=== PATIENT | male | born 1955 | race Caucasian/White ===

== ENCOUNTER 2023-12-07 09:04 | Outpatient (CLI) | payer BC, SELFPAY | END 2023-12-07 09:05 | disposition home or self-care (01) | LOC: LAB 09:05 | PROVIDERS: Visit Provider Family Medicine | DX: Z01.83 Encounter for blood typing (principal) | CPT/HCPCS: 36415; 86850; 86900; 86901 ==

== ENCOUNTER 2023-12-09 06:03 | Day surgery (SDC) | payer BC, SELFPAY ==
[2023-12-09] VITALS (32 sets, daily range): BP systolic 83–138; BP diastolic 49–104; PULSE 60–90; RESP 12–20; TEMP 35.9–37.4; O2SAT 91–100; BMI 37.8
[2023-12-09] MEDS: OXYCODONE (CR) 10 MG TAB.ER.12H PO (06:07)
[2023-12-09] MEDS: ACETAMINOPHEN 500 MG TABLET 1000 MG PO (06:07)
--- OUTSIDE RECORDS SUMMARY | 2023-12-09 06:07 | XMS_ITS | Clinical Summary ---
Author Name Unknown Organization [employer] [facility] Address [place], [place] [address] Care Team Providers Care Machine Veneer Repairer Name Role Phone None Primary Care Provider Unavailabl e Medications Medication Sig Dispensed Refills Start Date End Date Status brimonidine (ALPHAGAN) 0.2 % ophthalmic solution 0 04/15/2023 Activ e losartan (COZAAR) 100 mg tablet 0 02/05/2023 Active hydroCHLOROthiazide (HCTZ) 25 mg tablet 0 10/28/2022 Active Social History Tobacco Use Types Packs/Day Years Used Date Smoking Tobacco: Never Assessed Social Connections Answer Date Recorded Frequency of Communication with Friends and Fami ly Not on file 04/17/2023 Sex and Gender Information Value Date Recorded Sex Assigned at Not on file Gender Identity Not on file Sexual Orientation Not on file Last Filed Vital Signs Vital Sign Reading Time Taken Comments Blood Pressure 157/73 11/20/2021 10:08 AM ROUND CORNER CUTTER OPERATOR Pulse 76 11/20/2021 10:08 AM ROUND CORNER CUTTER OPERATOR Temperature 37 ??C (98.6 ??F) 11/20/2021 10:08 AM ROUND CORNER CUTTER OPERATOR Respiratory Rate 18 11/20/2021 10:08 AM ROUND CORNER CUTTER OPERATOR Oxygen Saturation 98% 11/20/2021 10:08 AM ROUND CORNER CUTTER OPERATOR Inhaled Oxygen Concentration - - Weight 121.6 kg (268 lb) 04/17/2023 2:56 PM CDT Height 185.4 cm (6' 1) 04/17/2023 2:56 PM CDT Body Mass Index 35.36 04/17/2023 2:56 PM CDT Plan of Treatment Health Maintenance Due Date Last Done Comments Tdap 02/02/1967 Depression screening for age 12+ 1968 Hepatitis C screening for age 18-79 02/02/1974 Tetanus booster 1976 Colonoscopy through age 75 02/02/2001 Lipids for age 45-75 02/02/2001 Zoster (shingles) series for age 50+ (1 of 2) 02/03/20 06 Pneumococcal series for age 65+ (1 of 1 - PCV) 021 COVID-19 vaccine series (2 - 2022- season) 3 08/13/2022 Influenza for age 65+ 07/26/2023 BMI (ht and wt on same day) for age 18+ 04/17/2024 0 04/17/2023 Care Teams Machine Veneer Repairer Relationship Specialty Start Date End Date None . PCP - General 11/20/21
[2023-12-09] MEDS: LACTATED RINGERS 1000 ML 1,000 ML 100 ML IV ×3 (06:45→10:08)
[2023-12-09] MEDS: SODIUM CHLORIDE 0.9 % (FLUSH) 10 ML SYRINGE IVF (06:45)
--- NOTE | 2023-12-09 07:05 | SUR.PREOP ---
TIME?OUT:?05 PT/RN/MDA?VERIFICATION?OF?SURGICAL?SITE,?PROCEDURE,?AND?CONSENT OBTAINED?PRIOR?TO?INVASIVE?PROCEDURE.
[2023-12-09] MEDS: fentaNYL 100 MCG/2 ML inj IVP (07:08)
[2023-12-09] MEDS: MIDAZOLAM HCL 1 MG/ML inj IVP (07:08)
[2023-12-09] MEDS: CEFAZOLIN 2 GM in 0.9 % SODIUM CHLORIDE Mini-bag 100 ML IVPB (07:36)
--- NOTE | 2023-12-09 07:39 | W.PM.H&PU ---
History & Physical Update History & Physical Update H&P Reviewed and patient assessed: No changes noted
[2023-12-09] MEDS: TRANEXAMIC ACID 100 MG/ML INJ 1000 MG IV (07:40)
--- NOTE | 2023-12-09 09:52 | P.ORPRC_ITS ---
Procedure Note Date of procedure: 12/09/23 Procedure: PREOPERATIVE DIAGNOSIS: 1. Right hip osteoarthritis, severe, primary POSTOPERATIVE DIAGNOSIS: 1. Right hip osteoarthritis, severe, primary PROCEDURE: 1. Right total hip arthroplasty-anterior approach 2. 32598 - intraoperative fluoroscopy up to 1 hour. SURGEON: Kendall Evans MD. TRANSIT AUTHORITY POLICE OFFICER: Dickson Causey PA-C; Juwan FLOYD - Of note, a skilled anesthesiologists' assistant was critical for this case to aid in patient positioning, tissue retraction, limb manipulation/positioning, and closure. ANESTHESIA: General endotracheal anesthetic EBL: 600 mL IMPLANTS: DePuy J&J uncemented total hip [place] cup size 54, hole eliminator, +4 neutral liner Actis stem, high offset, size 9 +1.5 mm ceramic 36 mm head COMPLICATIONS: None evident INDICATIONS: The patient is a pleasant 68-year-old male who has experienced severe right hip pain and difficulty bearing weight. Workup included x-rays which revealed severe osteoarthrosis in the hip. Given the deformity, the dysfunction, and the pain, as well as the failure of nonoperative management, recommendation was made for surgery. FINDINGS: Full-thickness chondral loss diffusely throughout the femoral head. Also acetabulum. Osteophytes around the perimeter of the acetabulum and femoral head/neck junction. Small effusion upon entering the joint. DESCRIPTION OF PROCEDURE: Following a thorough discussion of risks, benefits, and alternatives consent was obtained and the right hip was marked. The patient was brought to the operating room and placed supine on the operating table. Induction of anesthesia was undertaken. 3 g IV Ancef and 1 g tranexamic acid was administered within 1 hr of incision preoperatively. Proper time-out was performed identifying proper patient, site, procedure. The operative extremity was prepped and draped in the appropriate sterile fashion using ChloraPrep after the patient was positioned on the [place] table with head in neutral alignment and all bony prominences well padded. C-arm fluoroscopic imaging was utilized to confirm proper pelvis rotation and position, and to get true AP films of both the contralateral left, and the affected right hip. This is for comparison. A longitudinal incision was made starting approximately 1 cm distal to the ASIS, and 3-4 cm lateral. The incision was extended distally aiming toward the lateral border the patella. Sharp incision through skin and bovie cautery through the subcutaneous tissue allowed identification of the TFL fascia. This was sharply divided, and the fascia bluntly released from the muscle fibers as we dissected medial. Upon coming to the medial border, we were able to retract the TFL laterally, and penetrated the deeper fascia and identify the crossing circumflex vessels. These were ligated/cauterized. The rectus was elevated from the capsule, and retractors placed laterally and medially along the femoral neck to help with visualization of the capsule. We then performed an inverted T capsulotomy. The capsule was tagged for later repair. Retractors were placed inside the capsule. The femoral neck was visualized after releasing medially down to the lesser trochanter, along the saddle laterally, and up onto the acetabulum. The femoral neck cut was made in line with our preoperative templating. The head was removed in a single piece, and sized. We turned our attention to acetabular preparation. Initially, the labrum was resected from around the perimeter, the pulvinar was excised, allowing us to visualize the false wall. We started the reaming with a 43 mm reamer. This was medialized down to the true wall. We then enlarged our reamers sequentially up to one size less than the selected cup size. We trialed at the same size and found it to have an excellent fit. The selected cup was then opened, inserted, and impacted in line with the goal of 40? of abduction, and 20-25? of anteversion. This was confirmed on C-arm fluoroscopic imaging to be in the appropriate/goal position. Once the cup was placed we placed a hole eliminator a nd a liner consistent with preop planning. Attention was turned to the femoral preparation. The limb was extended, externally rotated, and adducted. The posteromedial capsule was released, as retractors were placed allowing excellent access to the proximal femur. Initially a farebox repairer was followed by canal finder followed by various broaches. We broached sequentially up to the size noted above, found it to have excellent rotational control, and trialing various heads and necks, revealed that appropriate neck offset, and the above noted head size provided the greatest stability, and pentecostal of length, and offset. C-arm fluoroscopic imaging confirmed position of the stem, as well as leg lengths, which were compared with the pre procedure all fluoroscopic images. Trial implants were removed, the real femoral stem inserted, as was the appropriate head. After reducing, the leg was placed through range of motion and stability was confirmed anterior, posterior, and lateral. A 3 min Betadine soak was then performed, and thorough irrigation with normal saline followed. Closure of the capsule was performed with #1 PDS. Bleeding was confirmed to be controlled at this stage, and the TFL fascia was closed with #0 strata fix. Subcutaneous, and subcuticular closure was performed with 2-0 Vicryl and 4-0 Monocryl, respectively. Dressings were applied, and the patient was awoken from anesthesia and transferred the PACU in stable condition. A skilled anesthesiologists' assistant was critical for this case to aid in patient positioning, tissue retraction, acetabular and proximal femoral exposure, limb manipulation/positioning, dislocation/relocation, patient safety, and closure. PLAN: 1. Weight bear as tolerated operative extremity. 2. 23 hr perioperative antibiotics. 3. Ice. 4. PT/OT consults for ambulation assistance/mobility education. 5. Social work consult for discharge planning. 6. DVT prophylaxis with at SCDs, Sharad Thelmae, and Xarelto x5 days followed by aspirin for a total of 1 month..
--- NOTE | 2023-12-09 10:05 | P.NB_ITS ---
Nerve Block Nerve Block Time Seen by Provider: 07:18 Date Seen: 12/09/23 Type of block requested by surgeon for post-operative analgesia: TIFFANY/LFCN Side: right Time out performed: Yes Verification of patient name: Yes Verification of date of : Yes Site marking: site marked Name of person performing procedure: Yuriy Continuous monitoring Was continuous monitoring of O2 sat, B/P, playground monitor, recorded every 15 minutes?: Yes Procedure Checklist: sterile prep, needles and gloves Ultrasound guided. Images saved: Yes Medications given in 5ml increments after negative aspiration: Ropivicaine %: 0.5 mL: 30 Needle gauge: 20 Decadron (mg): 10 Precedex (mcg): 25 Patient tolerated procedure well: Yes Additional comments: Needle noted below psoas tendon needle noted adjacent to LFCN Block Charges Block Charge (with Pro Fee): Other Periph Nerve Block Use of Ultrasound Machine for Block: Yes- US Guidance/pain block
--- NOTE | 2023-12-09 10:06 | W.ANESCHARGE ---
Anesthesia Charges Start Date/Time Anesthesia Start Date: 12/09/23 Anesthesia Start Time: 07:26 Stop Date/Time Anesthesia Stop Date: 12/09/23 Anesthesia Stop Time: 10:35
--- NOTE | 2023-12-09 10:15 | CRLHL7_ITS ---
For Patients: As a result of the Cures Act, medical imaging exams and procedure reports are released immediately into your electronic medical record. You may view this report before your referring provider. If you have questions, please contact your health care provider. INDICATION: Post right hip arthroplasty. TECHNIQUE: AP view of the pelvis as well as AP and lateral projections of right hip. COMPARISON: : None FINDINGS: Immediate postop change of right total hip arthroplasty. Prosthetic components well-seated and aligned. Moderate to advanced left hip osteoarthritis. IMPRESSION: : Immediate postop right total hip arthroplasty without evidence of complication. Dictated by Michael Frazier MD @ 12/10/2023 1:20:04 PM (Electronically Signed)
[2023-12-09] MEDS: fentaNYL 100 MCG/2 ML inj 50 MCG IVP ×2 (10:34→10:40)
--- NOTE | 2023-12-09 10:35 | W.ANESCHARGE ---
Anesthesia Charges Start Date/Time Anesthesia Start Date: 12/09/23 Anesthesia Start Time: 07:26 Stop Date/Time Anesthesia Stop Date: 12/09/23 Anesthesia Stop Time: 10:35
[2023-12-09] MEDS: HYDROmorphone 0.5 mg/0.5 ml inj IVP (10:58)
[2023-12-09] MEDS: METOCLOPRAMIDE HCL 5 MG/ML INJ 10 MG IVP (11:59)
--- NOTE | 2023-12-09 12:11 | CRLHL7_ITS ---
For Patients: As a result of the Cures Act, medical imaging exams and procedure reports are released immediately into your electronic medical record. You may view this report before your referring provider. If you have questions, please contact your health care provider. INDICATION: Right ANTONIA. TECHNIQUE: Two spot images of the right hip submitted. 57.9 seconds fluoro time provided. FINDINGS: Images taken during placement of right ANTONIA. Dictated by Fabio Francis MD @ 12/10/2023 9:04:26 AM (Electronically Signed)
--- NOTE | 2023-12-09 13:31 | SUR.PHASEII ---
PATIENTS RIGHT UPPER LIP SWOLLEN, ANESTHESIA AWARE, INSTRUCTED PATIENT TO ICE NEEDED FOR SWELLING.
--- NOTE | 2023-12-09 14:29 | SUR.PHASEII ---
Pt sitting up in chair in room getting ready for PT/OT. Pt had drop in blood presssure to 83/68. Pt states symptoms of feeling weak and tired. Pt appears pale. Repositioned patient chair to semi-fowlers position. BP continued to be lower, pt states he is still feeling tired and dizzy. Pt in chair in semi fowlers for 10 minutes. Pt BP returned to normal level and pt color improved.
--- NOTE | 2023-12-09 14:43 | REH.OT ---
D/T decreased blood pressures, pt. was transferred to / for recovery. He will be evaluated tomorrow prior to discharge.
[2023-12-09 15:14] LABS: Basophils Percent Auto 0.1 % (0.0-3.0); Hematocrit 43.8 % (37.0-53.0); Hemoglobin* 14.5 gm/dL (13.5-17.5); Immature Granulocytes Pct Auto 0.3 %; Mean Corpuscular HGB Conc 33 gm/dL (32-36); Mean Corpuscular Hemoglobin 31 pg (26-34); Mean Corpuscular Volume 94 fL (80-100); Monocytes Percent Auto 2.9 % (0.0-11.0); Neutrophils Percent Auto 90.7 % (42.0-72.0); Platelet Count* 251 K/uL (140-440); RDW Coefficient of Variation % 11.7 % (11.5-15.5); Red Blood Count 4.65 m/uL (4.30-5.90); White Blood Count* 12.75 K/uL (4.50-11.00)
[2023-12-09 15:20] LABS: Slide Review Reflex No
[2023-12-09 15:30] LABS: Chloride* 102 mmol/L (96-114); Potassium* 3.8 mmol/L (3.6-5.1); Sodium* 137 mmol/L (135-149)
[2023-12-09 15:33] LABS: Anion Gap 13 mEq/L (7-15); Blood Urea Nitrogen* 22 mg/dL (7-30); Carbon Dioxide* 22 mmol/L (20-32); Creatinine* 1.1 mg/dL (0.5-1.5); Est. Creatinine Clearance* 73.65; Estimated Glomerular Filt Rate 74 ml/min
[2023-12-09 15:34] LABS: Calcium* 8.9 mg/dL (8.4-10.6); Glucose* 214 mg/dL (60-115)
[2023-12-09] MEDS: CEFAZOLIN 3 GM in 0.9 % SODIUM CHLORIDE Mini-bag 100 ML IVPB (17:44)
[2023-12-09] MEDS: 0.9 % SODIUM CHLORIDE 250 ml IV (17:45)
[2023-12-09] MEDS: hydrOXYzine pamoate 25 MG CAPSULE PO ×2 (18:27→22:30)
--- NOTE | 2023-12-09 19:05 | P.IMCN_ITS ---
Date of Consult Patient: [facility] Patient Consult date: 12/09/23 Requesting Physician: Orthopedics Primary Care Provider: Kermit Combs MD, [facility] Consult Narrative Reason for consult: Medical management Narrative: Pablo Sequeira is a 68 year old male past medical history significant for hypertension, migraines, BPPV, primary open-angle glaucoma, right rotator cuff repair is POD#0 s/p right ANTONIA. Postoperatively, patient reports he is a little anxious as the block wears off and pain is slowly increasing. He is open to using hydroxyzine as needed. Was supposed to discharge to home today following surgery however was hypotensive so decision was made to admit for observation. He admits this also makes him a little anxious. Denies nausea, tolerating orals without vomiting. There have been no post operative nursing concerns reported. Blood pressure stabilized. Estimated total blood loss documented as 600 ml. Updated and reviewed the active medical problems, past medical history, past surgical history, social history, allergies and medications in our electronic EMR. Review of Systems Narrative: REVIEW OF SYSTEMS: Complete review of systems performed and negative unless otherwise stated in HPI or below. PFSH [facility] Medical History Diverticulosis ?K57.90 - Diverticulosis of intestine, part unspecified, without perforation or abscess without bleeding (ICD-10) BPPV (benign paroxysmal positional vertigo) ?H81.10 - Benign paroxysmal vertigo, unspecified ear (ICD-10) Pre-diabetes ?R73.03 - Prediabetes (ICD-10) Sleep apnea ?G47.30 - Sleep apnea, unspecified (ICD-10) Hypertension ?I10 - Essential (primary) hypertension (ICD-10) Surgical History Hx of arthroscopic knee surgery ?Z98.890 - Other specified postprocedural states (ICD-10) S/P right rotator cuff repair (~2020) ?Z98.890 - Other specified postprocedural states (ICD-10) History of open reduction and internal fixation (ORIF) procedure ?Z98.890 - Other specified postprocedural states (ICD-10) H/O arthroscopy of left knee ?Z98.890 - Other specified postprocedural states (ICD-10) Social History Narrative: former chewing tobacco user-quit in -[place] Smoking Status: Former smoker What tobacco products do you use: cigarettes Smoking quit date/years: >15 years ago Do you use any of these nicotine containing products: None Second hand tobacco smoke exposure: No How often do you have a drink containing alcohol: never How often do you have six or more drinks on one occasion: Never AUDIT-C Alcohol total score: 0 Non-prescribed substance use: denies use Caffeine: Yes Meds Home Medications and Allergies Home Medications Medication Instructions Recorded Confirmed Type dorzolamide 22.3 mg-timolol 6.8 1 drp ophthalmic (eye) BID 10/01/23 12/09/23 History mg/mL eye drops hydrochlorothiazide 25 mg tablet 25 mg PO DAILY 10/01/23 12/09/23 History latanoprost 0.005 % eye drops 1 drp ophthalmic (eye) HS 10/01/23 12/09/23 History losartan 100 mg tablet 100 mg PO DAILY 10/01/23 12/09/23 History multivitamin (Multiple Vitamins 1 tab PO DAILY 10/01/23 12/09/23 History tablet) meloxicam 15 mg tablet 7.5 mg PO BID PRN 12/05/23 12/09/23 History Allergies Allergy/AdvReac Type Severity Reaction Status Date / Time No Known Drug Allergies Allergy Verified 12/09/23 06:17 Exam Narrative: Exam Narrative: PHYSICAL EXAM General: Pleasant, conversant, NAD HEENT: Normocephalic, atraumatic, sclera white, EOMI, oral mucosa moist Cardiovascular: RRR, S1S2. No pitting edema Pulmonary: CTA bilaterally without rhonchi, rales, expiratory wheezes. No dys pnea Abdominal: Soft, nondistended, NTTP Neurological: Alert, answering questions appropriately, cranial nerves intact, no focal findings Extremities: No gross joint deformity or swelling. Postoperative dressing in place, dry. Neurovascularly intact Skin: Warm, dry. Const: Vital Signs, click to edit/add: Vital Signs - 24 hr 12/09/23 06:56 12/09/23 07:09 12/09/23 07:15 Temperature 98.2 F 98.2 F Pulse Rate 68 66 60 Pulse Rate [Right Pulse Oximeter] Respiratory Rate 16 16 14 Blood Pressure 132/62 132/62 124/104 H Blood Pressure [Le ft Arm] Pulse Oximetry 98 98 96 Oxygen Delivery Me thod Room Air Nasal Cannula Nasal Cannula Oxygen Flow Rate 2 2 12/09/23 07:20 12/09/23 10:30 12/09/23 10:35 Temperature 97.4 F L Pulse Rate 67 70 72 Pulse Rate [Right Pulse Oximeter] Respiratory Rate 14 18 18 Blood Pressure 119/70 119/73 112/70 Blood Pressure [Le ft Arm] Pulse Oximetry 96 95 94 Oxygen Delivery Me thod Nasal Cannula Room Air Oxygen Flow Rate 2 12/09/23 10:40 12/09/23 10:45 12/09/23 10:50 Temperature Pulse Rate 67 67 65 Pulse Rate [Right Pulse Oximeter] Respiratory Rate 14 14 16 Blood Pressure 133/67 107/55 L 105/49 L Blood Pressure [Le ft Arm] Pulse Oximetry 96 93 91 Oxygen Delivery Me thod Nasal Cannula Oxygen Flow Rate 2 12/09/23 10:55 12/09/23 11:00 12/09/23 11:05 Temperature 97.1 F L Pulse Rate 65 64 63 Pulse Rate [Right Pulse Oximeter] Respiratory Rate 15 12 16 Blood Pressure 127/76 138/69 135/70 Blood Pressure [Le ft Arm] Pulse Oximetry 99 100 100 Oxygen Delivery Me thod Oxygen Flow Rate 12/09/23 11:10 12/09/23 11:16 12/09/23 11:20 Temperature 96.6 F L Pulse Rate 60 64 64 Pulse Rate [Right Pulse Oximeter] Respiratory Rate 14 14 14 Blood Pressure 138/79 106/61 106/76 Blood Pressure [Le ft Arm] Pulse Oximetry 100 100 100 Oxygen Delivery Me thod Nasal Cannula Nasal Cannula Nasal Cannula Oxygen Flow Rate 2 2 2 12/09/23 11:30 12/09/23 11:45 12/09/23 12:00 Temperature Pulse Rate 62 63 66 Pulse Rate [Right Pulse Oximeter] Respiratory Rate 14 14 14 Blood Pressure 117/64 120/67 135/75 Blood Pressure [Le ft Arm] Pulse Oximetry 99 99 100 Oxygen Delivery Me thod Nasal Cannula Nasal Cannula Room Air Oxygen Flow Rate 2 2 12/09/23 12:15 12/09/23 12:30 12/09/23 13:00 Temperature Pulse Rate 69 63 79 Pulse Rate [Right Pulse Oximeter] Respiratory Rate 14 14 14 Blood Pressure 136/80 121/70 102/62 Blood Pressure [Le ft Arm] Pulse Oximetry 93 98 99 Oxygen Delivery Me thod Room Air Room Air Room Air Oxygen Flow Rate 12/09/23 13:30 12/09/23 13:35 12/09/23 13:40 Temperature Pulse Rate 79 75 79 Pulse Rate [Right Pulse Oximeter] Respiratory Rate 16 16 16 Blood Pressure 83/68 L 92/49 L 97/62 Blood Pressure [Le ft Arm] Pulse Oximetry 94 94 94 Oxygen Delivery Ri thod Room Air Room Air Room Air Oxygen Flow Rate 12/09/23 13:45 12/09/23 14:00 12/09/23 14:30 Temperature Pulse Rate 79 75 75 Pulse Rate [Right Pulse Oximeter] Respiratory Rate 16 16 16 Blood Pressure 111/59 L 113/57 L 117/74 Blood Pressure [Le ft Arm] Pulse Oximetry 92 94 94 [facility] Room Air Room Air Oxygen Flow Rate 12/09/23 15:02 12/09/23 15:02 12/09/23 16:00 Temperature 98.2 F Pulse Rate Pulse Rate [Right Pulse Oximeter] 82 78 Respiratory Rate 20 18 Blood Pressure Blood Pressure [Le ft Arm] 117/60 106/68 Pulse Oximetry 92 92 94 [facility] Room Air Room Air Oxygen Flow Rate 12/09/23 17:00 Temperature 98.0 F Pulse Rate Pulse Rate [Right Pulse Oximeter] 87 Respiratory Rate 18 Blood Pressure Blood Pressure [Le ft Arm] 125/65 Pulse Oximetry 95 Oxygen Delivery Ri thod Room Air Oxygen Flow Rate Labs Labs: Short CBC 12/09/23 Range/Units 15:08 WBC 12.75 H (4.50-11.00) K/uL Hgb 14.5 (13.5-17.5) gm/dL Hct 43.8 (37.0-53.0) % Plt Count 251 (140-440) K/uL BMP 12/09/23 15:08 Sodium 137 Potassium 3.8 Chloride 102 Carbon Dioxide 22 BUN 22 Creatinine 1.1 Glucose 214 H Calcium 8.9 Assessment and Plan Assessment and plan (1) Osteoarthritis of right hip: Problem comment: -POD#0 s/p right total hip arthroplasty -perioperative management including pain management and anticoagulation per Orthopedic surgery. Added p.r.n. hydroxyzine for postoperative anxiety -encourage postoperative pulmonary hygiene -PT OT consults -plan to discharge home with tomorrow Status: Acute (2) Hypertension: Problem comment: -hypotensive perioperatively, improved with IVF, has remained stable -hold home losartan and hydrochlorothiazide tonight, resuming upon discharge Status: Chronic Plan May resume home medications upon discharge. Hospital medicine team will sign off. Please contact our service with any questions or concerns.
[2023-12-09] MEDS: OXYCODONE 5 MG TABLET PO (19:57)
[2023-12-09] MEDS: SENNOSIDES 1 TAB TABLET 2 TAB PO (20:43)
[2023-12-10] MEDS: OXYCODONE 5 MG TABLET PO ×4 (01:34→11:10)
[2023-12-10] MEDS: CEFAZOLIN 3 GM in 0.9 % SODIUM CHLORIDE Mini-bag 100 ML IVPB (01:34)
[2023-12-10 01:43] VITALS: TEMP 37.1
[2023-12-10 02:25] VITALS: BP 118/63; PULSE 84; RESP 17; TEMP 37.2; O2SAT 92
--- NOTE | 2023-12-10 06:52 | PC.NURSE ---
Patient pleasant, alert and oriented. Transfers and ambulates with walker and stand by assist. Needed help supporting right leg when sitting up and lying down in bed. Denies lightheadedness/diziness with ambulation. Reports pain with position change, standing and ambulation. Given PRN Oxycodone for pain in right hip rated 6-7/10. PRN anxiety medication given per patient request at HS.?
[2023-12-10 08:06] VITALS: BP 126/68; PULSE 88; RESP 18; TEMP 36.9; O2SAT 93
[2023-12-10] MEDS: SENNOSIDES 1 TAB TABLET 2 TAB PO (08:23)
[2023-12-10] MEDS: RIVAROXABAN 10 MG TABLET PO (08:23)
--- NOTE | 2023-12-10 10:17 | PM.ORPN ---
Subjective Subjective Date Seen: 12/10/23 Principal diagnosis: Status postop day 1, right total hip arthroplasty - anterior approach Interval history: Same-day joint trial. Due to pain control issues, patient was transferred to the floor as med surg recovery. He reports doing okay, pain noted over the anterior right thigh; 5/10 with rest, 7/10 with activity. The worst is trying to get out of bed. No acute events over night. Mild, short lasting lightheadedness when getting out of bed this morning - no residual lightheadedness. Pain managed with scheduled and PRN medications, ice. DVT prophylaxis: Rivaroxaban, bilateral knee high Sharad stockings, SCDs, walking. Denies fevers, chills, aches, N/V, CP, SOB/VAUGHAN. Ortho Exam Narrative Exam Narrative: -Patient appears comfortable in recliner; no apparent acute distress -Alert and oriented times 3 -Operative hip swollen; soft tissues supple; no obvious erythema. Ecchymosis minimal. Warmth appropriate -Surgical dressing clean, dry, intact; no obvious drainage, no erythematous streaking peripheral to the bandage -Bilateral calves soft and supple; no significant swelling, edema, tenderness, erythema, discoloration, warmth, or palpable cords -2+ DP/PT pulses, intact dermatomes and myotomes distally (5/5 strength). Mild numbness about the lateral femoral cutaneous nerve distribution. Const Vital Signs, click to edit/add: Vital Signs - 24 hr 12/09/23 10:30 12/09/23 10:35 12/09/23 10:40 Temperature 97.4 F L Pulse Rate 70 72 67 Pulse Rate [Right Pulse Oximeter] Respiratory Rate 18 18 14 Blood Pressure 119/73 112/70 133/67 Blood Pressure [Left Arm] Pulse Oximetry 95 94 96 Oxygen Delivery Method Room Air Oxygen Flow Rate 12/09/23 10:45 12/09/23 10:50 12/09/23 10:55 Temperature Pulse Rate 67 65 65 Pulse Rate [Right Pulse Oximeter] Respiratory Rate 14 16 15 Blood Pressure 107/55 L 105/49 L 127/76 Blood Pressure [Left Arm] Pulse Oximetry 93 91 99 Oxygen Delivery Method Nasal Cannula Oxygen Flow Rate 2 12/09/23 11:00 12/09/23 11:05 12/09/23 11:10 Temperature 97.1 F L Pulse Rate 64 63 60 Pulse Rate [Right Pulse Oximeter] Respiratory Rate 12 16 14 Blood Pressure 138/69 135/70 138/79 Blood Pressure [Left Arm] Pulse Oximetry 100 100 100 Oxygen Delivery Method Nasal Cannula Oxygen Flow Rate 2 12/09/23 11:16 12/09/23 11:20 12/09/23 11:30 Temperature 96.6 F L Pulse Rate 64 64 62 Pulse Rate [Right Pulse Oximeter] Respiratory Rate 14 14 14 Blood Pressure 106/61 106/76 117/64 Blood Pressure [Left Arm] Pulse Oximetry 100 100 99 Oxygen Delivery Method Nasal Cannula Nasal Cannula Nasal Cannula Oxygen Flow Rate 2 2 2 12/09/23 11:45 12/09/23 12:00 12/09/23 12:15 Temperature Pulse Rate 63 66 69 Pulse Rate [Right Pulse Oximeter] Respiratory Rate 14 14 14 Blood Pressure 120/67 135/75 136/80 Blood Pressure [Left Arm] Pulse Oximetry 99 100 93 Oxygen Delivery Method Nasal Cannula Room Air Room Air Oxygen Flow Rate 2 12/09/23 12:30 12/09/23 13:00 12/09/23 13:30 Temperature Pulse Rate 63 79 79 Pulse Rate [Right Pulse Oximeter] Respiratory Rate 14 14 16 Blood Pressure 121/70 102/62 83/68 L Blood Pressure [Left Arm] Pulse Oximetry 98 99 94 Oxygen Delivery Method Room Air Room Air Room Air Oxygen Flow Rate 12/09/23 13:35 12/09/23 13:40 12/09/23 13:45 Temperature Pulse Rate 75 79 79 Pulse Rate [Right Pulse Oximeter] Respiratory Rate 16 16 16 Blood Pressure 92/49 L 97/62 111/59 L Blood Pressure [Left Arm] Pulse Oximetry 94 94 92 Oxygen Delivery Method Room Air Room Air Room Air Oxygen Flow Rate 12/09/23 14:00 12/09/23 14:30 12/09/23 15:02 Temperature Pulse Rate 75 75 Pulse Rate [Right Pulse Oximeter] Respiratory Rate 16 16 Blood Pressure 113/57 L 117/74 Blood Pressure [Left Arm] Pulse Oximetry 94 94 92 Oxygen Delivery Method Room Air Room Air Room Air Oxygen Flow Rate 12/09/23 15:02 12/09/23 16:00 12/09/23 17:00 Temperature 98.2 F 98.0 F Pulse Rate Pulse Rate [Right Pulse Oximeter] 82 78 87 Respiratory Rate 20 18 18 Blood Pressure Blood Pressure [Left Arm] 117/60 106/68 125/65 Pulse Oximetry 92 94 95 Oxygen Delivery Method Room Air Room Air Room Air Oxygen Flow Rate 12/09/23 19:00 12/09/23 22:31 12/10/23 01:43 Temperature 97.9 F 99.4 F 98.8 F Pulse Rate Pulse Rate [Right Pulse Oximeter] 76 90 Respiratory Rate 18 20 Blood Pressure Blood Pressure [Left Arm] 124/63 120/67 Pulse Oximetry 94 93 Oxygen Delivery Method Room Air Room Air Oxygen Flow Rate 12/10/23 02:25 12/10/23 08:06 12/10/23 08:06 Temperature 98.9 F 98.5 F Pulse Rate Pulse Rate [Right Pulse Oximeter] 84 88 Respiratory Rate 17 18 Blood Pressure Blood Pressure [Left Arm] 118/63 126/68 Pulse Oximetry 92 93 93 Oxygen Delivery Method Room Air Room Air Room Air Oxygen Flow Rate Assessment and Plan Assessment and plan (1) Osteoarthritis of right hip: Problem details: -POD#1 s/p right total hip arthroplasty -perioperative management including pain management and anticoagulation per Orthopedic surgery. Added p.r.n. hydroxyzine for postoperative anxiety -encouraged postoperative pulmonary hygiene -PT OT consults -plan to discharge home with tomorrow Status: Acute (2) Hypertension: Problem details: -hypotensive perioperatively, improved with IVF, has remained stable -hold home losartan and hydrochlorothiazide tonight, resuming upon discharge Status: Chronic Plan - Complete 23 hour perioperative antibiotics. - PT/OT consult for education and assistance. - Social work consult for discharge planning - Prescribed analgesics as needed - DVT prophylaxis: Rivaroxaban, bilateral knee high Sharad Hose stockings and SCDs - Anticipation is for discharge to home with spouse, 12/10/2023 if the patient remains medically stable, pain is controlled, and they are safe with mobilization.
== END 2023-12-10 11:42 | disposition home or self-care (01) ==
LOC: OR 13:23 → MEDSURG 17:30
PROVIDERS: Physician Assistant Surgical; Visit Provider Orthopaedic Surgery Sports Medicine
PROC: (CPT 27130; principal; 2023-12-09 07:30)
DX: M16.11 Unilateral primary osteoarthritis, right hip (principal); G89.18 Other acute postprocedural pain; I95.81 Postprocedural hypotension; I10 Essential (primary) hypertension; G47.30 Sleep apnea, unspecified; F41.9 Anxiety disorder, unspecified; R20.0 Anesthesia of skin; R42 Dizziness and giddiness
CPT/HCPCS: 27130; 01214; 36415; 64450; 73501; 76000; 76942; 80048; 85025; 97110; 97116; 97161; 97165; 97535; A9270; C1776; J0330; J0690; J1100; J1170; J2250; J2371; J2405; J2704; J2710; J2765; J2795; J3010; J3490; J7050; J7120

== ENCOUNTER 2023-12-23 14:00 | Outpatient (RCR) | payer BC, SELFPAY ==
--- NOTE | 2023-12-02 14:39 | PT.OPEX ---
PT [facility] Outpatient Eval PT [facility] Outpatient Eval Start: 12/02/23 10:28 Freq: Status: Active Protocol: Document 12/02/23 14:27 TOBIASHenry (Rec: 12/02/23 14:36 TOBIAS [id number]) E-signed By Brenda Mckenzie, PT Physical Therapy Outpatient Evaluation Insurance Information Recert Due Date 02/26/24 Insurance Name [employer] Medical Diagnosis Pre and post operative right ANTONIA DOS 12/09/23 Treating Diagnosis Right hip pain, limited hip ROM, antalgic gait, muscle weakness Referring MD Cristina Subjective Subjective Pablo reports to PT to prepare for upcoming R ANTONIA DOS 12/09/23. He plans to also have his left hip done as soon as able following this surgery. He currently is independent with all mobility however severely limited d/t pain R>L with gradually worsening pain over the past 20 years. [facility] with 1 step to enter. Railing on right side with stairs inside. He has a cane and sock aide at home. Plans to live upstairs and is able to work at his computer once he is off pain medication. His does the laundry. Has shower bench and grab bars next to toilet. 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 Session focused on education of anterior hip precautions, post-operative fall prevention precautions, transfers, gait with AD, stair negotiation, post-operative exercises. He is able to verbalize precautions and demonstrated independence with exercises, gait and stairs. He is appropriate to proceed with surgery at this time. Primary Functional Limitations Walking, standing, squatting, bending, transfers, sitting, donning shoes/socks Plan of Care Rehabilitation Potential Good Physical Therapy Goals By end of session today, patient will... Demonstrate appropriate gait pattern with FWW to utilize post surgery for optimal safety when ambulating Demonstrate ability to negotiate stairs using appropriate stair pattern post surgery for optimal safety when at home and in community Verbalize understanding of most appropriate home set up including needed equipment for optimal safety and recovery post surgery Be independent in HEP program to show ability to perform appropriate exercises post surgery Treatment Plan/Direct Interventions Gait Training,Ice/Cold/ Vasopneumatic,Joint Mobilization,Manual Therapy, Neuromuscular Re-ed,Self-Care/ Home Management,Therapeutic Activities,Therapeutic Exercises Frequency/Duration 1x/wk for 4-8 weeks Patient Will Be Discharged From Therapy Completion of LTG(s), Independent w/HEP, Independently Progressing Evaluation Billing Untimed Code Treatment Minutes 20 Complexity Low Certification Information Initial Certification Date 12/02/23 Ending Certification Date 02/26/24 Provider Signature Shows Agreement With POC & Medical Necessity Physician Signature & Date Requested Please Sign/Date Here Physician Comment/Change : Physician NPI Number #
== END 2023-12-23 14:50 | disposition home or self-care (01) ==
PROVIDERS: Visit Provider Orthopaedic Surgery Sports Medicine
DX: M16.0 Bilateral primary osteoarthritis of hip (principal); Z96.643 Presence of artificial hip joint, bilateral; Z51.89 Encounter for other specified aftercare
CPT/HCPCS: 97110; 97140; 97161; 97164; 97535